=== PATIENT | female | born 1970 | race Caucasian/White ===

== ENCOUNTER 2016-08-22 10:43 | Emergency (ER) | payer OTHER ==
[~2016-08-22] VITALS: Ht 170.2 cm; Wt 77.1 kg
[2016-08-22 11:42] VITALS: BP 118/84
[2016-08-22 12:00] LABS: UA SPECIFIC GRAVITY >=1.030 (1.005-1.035); microscopic required? YES; urine erythrocyte 3+ (NEGATIVE)
== END 2016-08-22 11:47 | disposition home or self-care (01) ==
LOC: ED 10:43
PROVIDERS: Specialist
DX: N39.0 Urinary tract infection, site not specified (principal); F41.9 Anxiety disorder, unspecified; R53.83 Other fatigue

== ENCOUNTER 2016-11-27 20:11 | Emergency (ER) | payer OTHER ==
[2016-11-28 00:30] VITALS: BP 140/70
== END 2016-11-28 00:30 | disposition home or self-care (01) ==
LOC: ED 20:11
DX: R10.9 Unspecified abdominal pain (principal)
CPT/HCPCS: Q0092

== ENCOUNTER 2016-12-12 11:38 | Emergency (ER) | payer OTHER ==
[~2016-12-12] VITALS: Ht 170.2 cm; Wt 79.8 kg
[2016-12-12 13:19] LABS: BASOPHIL % 0.6 % (0-2); PLATELET COUNT 228 x10^3mcL (130-400)
[2016-12-12 13:35] LABS: UA SPECIFIC GRAVITY <=1.005 (1.005-1.035); microscopic required? YES; urine erythrocyte 1+ (NEGATIVE)
[2016-12-12 13:40] LABS: FREE T4 0.99 ng/dL (0.76-1.46); FREE THYROXINE INDEX 3.2 ug/dL (1.4-4.5); T4(THYROXINE) 10.5 ug/dL (4.7-13.3)
[2016-12-12 13:41] LABS: T3 TOTAL 1.29 ng/mL
[2016-12-12 14:20] LABS: CALCIUM 10.3 mg/dL (8.5-10.1); CARBON DIOXIDE 29.1 mmol/L (21-32); CHLORIDE SERUM 103 mmol/L (98-107); GFR1 > 60 mL/min; GLUCOSE SERUM 89 mg/dL (74-106); POTASSIUM SERUM 3.8 mmol/L (3.5-5.1); SODIUM SERUM 143 mmol/L (136-145)
[2016-12-12 14:25] LABS: ALBUMIN 4.2 g/dL (3.4-5.0); ALKALINE PHOSPHATASE 88 U/L (46-116); ALT/SGPT 22 U/L (14-59); AST/SGOT 9 U/L (15-37); BILIRUBIN TOTAL 0.4 mg/dL (0.20-1.00); LIPASE 136 IU/L (73-393); TOTAL PROTEIN, SERUM 8.2 g/dL (6.4-8.2); TRIGLYCERIDES 83 mg/dL (<150)
[2016-12-12 14:31] LABS: CHOLESTEROL 211 mg/dL (<200); CHOLESTEROL/HDL RATIO 3.4; HDL CHOLESTEROL 62 mg/dL (40-60)
[2016-12-12 15:19] VITALS: BP 113/91
== END 2016-12-12 15:19 | disposition home or self-care (01) ==
LOC: ED 11:38
PROVIDERS: Specialist
DX: R07.9 Chest pain, unspecified (principal); R53.1 Weakness; F41.9 Anxiety disorder, unspecified; F32.9 Major depressive disorder, single episode, unspecified
CPT/HCPCS: 83880; 84439; J1885; J7030; Q0092

== ENCOUNTER 2017-03-26 09:34 | Emergency (ER) | payer OTHER ==
[2017-03-26 10:21] LABS: microscopic required? YES; urine erythrocyte 2+ (NEGATIVE)
[2017-03-26 10:28] LABS: CALCIUM 8.8 mg/dL (8.5-10.1); CARBON DIOXIDE 29.2 mmol/L (21-32); CHLORIDE SERUM 104 mmol/L (98-107); CREATININE SERUM 0.8 mg/dL (0.6-1.0); GFR1 > 60 mL/min; GLUCOSE SERUM 102 mg/dL (74-106); POTASSIUM SERUM 3.8 mmol/L (3.5-5.1); SODIUM SERUM 138 mmol/L (136-145)
[2017-03-26 10:32] LABS: ALBUMIN 3.5 g/dL (3.4-5.0); ALKALINE PHOSPHATASE 87 U/L (46-116); ALT/SGPT 13 U/L (14-59); AMYLASE 64 U/L (25-115); AST/SGOT 6 U/L (15-37); BILIRUBIN TOTAL 0.5 mg/dL (0.20-1.00); LIPASE 121 IU/L (73-393); TOTAL PROTEIN, SERUM 7.3 g/dL (6.4-8.2)
[2017-03-26 10:36] LABS: BASOPHIL % 0.4 % (0-2); PLATELET COUNT 171 x10^3mcL (130-400); RED CELL DISTRIBUTION WIDTH 13.4 % (11.5-14.5)
[2017-03-26 13:24] VITALS: BP 118/79
== END 2017-03-26 13:24 | disposition home or self-care (01) ==
LOC: ED 09:34
PROVIDERS: Emergency Medicine
DX: N39.0 Urinary tract infection, site not specified (principal); K59.00 Constipation, unspecified; G89.4 Chronic pain syndrome; M77.02 Medial epicondylitis, left elbow
CPT/HCPCS: 36415; J1100; J1885

== ENCOUNTER 2017-05-16 11:24 | Emergency (ER) | payer OTHER ==
[~2017-05-16] VITALS: Ht 170.2 cm; Wt 79.8 kg
[2017-05-16 12:42] VITALS: BP 147/99; Ht 170.2 cm; Wt 79.8 kg
== END 2017-05-16 14:54 | disposition left against medical advice (07) ==
LOC: ED 11:24
DX: Z53.21 Procedure and treatment not carried out due to patient leaving prior to being seen by health care provider (principal)

== ENCOUNTER 2017-05-17 11:23 | Emergency (ER) | payer OTHER ==
[~2017-05-17] VITALS: Ht 170.2 cm; Wt 78.5 kg
[2017-05-17 11:42] VITALS: Ht 170.2 cm; Wt 78.5 kg
[2017-05-17 14:46] LABS: BASOPHIL % 0.4 % (0-2); PLATELET COUNT 140 x10^3mcL (130-400); RED CELL DISTRIBUTION WIDTH 13.9 % (11.5-14.5)
[2017-05-17 15:17] LABS: UA SPECIFIC GRAVITY >=1.030 (1.005-1.035); microscopic required? YES; urine erythrocyte 3+ (NEGATIVE)
[2017-05-17 15:47] LABS: CALCIUM 8.7 mg/dL (8.5-10.1); CARBON DIOXIDE 27.3 mmol/L (21-32); CHLORIDE SERUM 102 mmol/L (98-107); CREATININE SERUM 0.9 mg/dL (0.6-1.0); GFR1 > 60 mL/min; GLUCOSE SERUM 98 mg/dL (74-106); POTASSIUM SERUM 3.4 mmol/L (3.5-5.1); SODIUM SERUM 138 mmol/L (136-145)
[2017-05-17 16:22] VITALS: BP 124/90
== END 2017-05-17 16:22 | disposition home or self-care (01) ==
LOC: ED 11:23
PROVIDERS: Emergency Medicine
DX: J11.1 Influenza due to unidentified influenza virus with other respiratory manifestations (principal)
CPT/HCPCS: 36415; 87804; J1885

== ENCOUNTER 2018-02-06 09:50 | Emergency (ER) | payer OTHER ==
[~2018-02-06] VITALS: Ht 170.2 cm; Wt 83.0 kg
[2018-02-06 09:57] VITALS: Ht 170.2 cm; Wt 83.0 kg
[2018-02-06 12:27] VITALS: BP 110/70
== END 2018-02-06 12:27 | disposition home or self-care (01) ==
LOC: ED 09:50
DX: N39.0 Urinary tract infection, site not specified (principal); F41.9 Anxiety disorder, unspecified; F32.9 Major depressive disorder, single episode, unspecified; Z86.2 Personal history of diseases of the blood and blood-forming organs and certain disorders involving the immune mechanism
CPT/HCPCS: J0696

== ENCOUNTER 2018-03-05 07:58 | Emergency (ER) | payer OTHER ==
[~2018-03-05] VITALS: Ht 170.2 cm; Wt 82.3 kg
[2018-03-05 08:04] VITALS: Ht 170.2 cm; Wt 82.3 kg
[2018-03-05 09:20] LABS: UA SPECIFIC GRAVITY 1.015 (1.005-1.035); microscopic required? YES; urine erythrocyte 2+ (NEGATIVE)
[2018-03-05 09:31] VITALS: BP 119/79
== END 2018-03-05 10:48 | disposition home or self-care (01) ==
LOC: ED 07:58
PROVIDERS: Emergency Medicine
DX: G43.909 Migraine, unspecified, not intractable, without status migrainosus (principal); G89.29 Other chronic pain; M54.9 Dorsalgia, unspecified; F41.9 Anxiety disorder, unspecified; F32.9 Major depressive disorder, single episode, unspecified; G62.9 Polyneuropathy, unspecified; Z86.2 Personal history of diseases of the blood and blood-forming organs and certain disorders involving the immune mechanism; Z98.890 Other specified postprocedural states; Z98.82 Breast implant status
CPT/HCPCS: J2765

== ENCOUNTER 2018-03-26 08:41 | Emergency (ER) | payer OTHER ==
[~2018-03-26] VITALS: Ht 170.2 cm; Wt 83.5 kg
[2018-03-26 08:51] VITALS: BP 124/79; Ht 170.2 cm; Wt 83.5 kg
== END 2018-03-26 09:48 | disposition home or self-care (01) ==
LOC: ED 08:41
DX: N30.80 Other cystitis without hematuria (principal); F41.9 Anxiety disorder, unspecified; F32.9 Major depressive disorder, single episode, unspecified; Z86.2 Personal history of diseases of the blood and blood-forming organs and certain disorders involving the immune mechanism; Z98.890 Other specified postprocedural states; Z98.82 Breast implant status

== ENCOUNTER 2018-07-14 08:32 | Emergency (ER) | payer OTHER ==
[~2018-07-14] VITALS: Ht 170.2 cm; Wt 85.3 kg
[2018-07-14 08:38] VITALS: Ht 170.2 cm; Wt 85.3 kg
[2018-07-14 09:35] LABS: BASOPHIL % 0.6 % (0-2); PLATELET COUNT 193 x10^3mcL (130-400); RED CELL DISTRIBUTION WIDTH 13.9 % (11.5-14.5)
[2018-07-14 09:39] LABS: CARBON DIOXIDE 26.2 mmol/L (21-32); CHLORIDE SERUM 104 mmol/L (98-107); CREATININE SERUM 0.8 mg/dL (0.6-1.0); GFR1 > 60 mL/min; GLUCOSE SERUM 83 mg/dL (74-106); POTASSIUM SERUM 4.2 mmol/L (3.5-5.1); SODIUM SERUM 138 mmol/L (136-145)
[2018-07-14 09:43] LABS: ALBUMIN 3.5 g/dL (3.4-5.0); ALKALINE PHOSPHATASE 78 U/L (46-116); ALT/SGPT 17 U/L (14-59); AST/SGOT 8 U/L (15-37); BILIRUBIN TOTAL 0.4 mg/dL (0.20-1.00); TOTAL PROTEIN, SERUM 7.3 g/dL (6.4-8.2)
[2018-07-14 11:39] VITALS: BP 127/82
== END 2018-07-14 11:39 | disposition home or self-care (01) ==
LOC: ED 08:32
PROVIDERS: Emergency Medicine
DX: S16.1XXA Strain of muscle, fascia and tendon at neck level, initial encounter (principal); F41.9 Anxiety disorder, unspecified; F32.9 Major depressive disorder, single episode, unspecified; R07.89 Other chest pain; Z86.2 Personal history of diseases of the blood and blood-forming organs and certain disorders involving the immune mechanism; X58.XXXA Exposure to other specified factors, initial encounter; Y93.89 Activity, other specified; Y92.89 Other specified places as the place of occurrence of the external cause; Y99.8 Other external cause status
CPT/HCPCS: J1885; J7030; Q0092; Q9967

== ENCOUNTER 2019-05-15 13:36 | Emergency (ER) | payer OTHER | END 2019-05-15 15:39 | disposition left against medical advice (07) | LOC: ED 13:36 | DX: Z53.21 Procedure and treatment not carried out due to patient leaving prior to being seen by health care provider (principal) ==

== ENCOUNTER 2019-06-02 09:42 | Inpatient (IN) | payer OTHER ==
[~2019-06-02] VITALS: Ht 170.2 cm; Wt 82.2 kg
[2019-06-02 09:49] VITALS: Ht 170.2 cm; Wt 82.2 kg
--- NOTE | 2019-06-02 10:08 | NUR ---
PT HERE FOR C/O HAVING ABD PAIN AND FULL BODY PAIN THAT WORSENED THIS MORNING. SIG OTHER AT BEDSIDE. PT TEARFUL
--- NOTE | 2019-06-02 10:23 | NUR ---
MEDICATED ORDERED. WILL CONT TO MONITOR
[2019-06-02 10:52] LABS: ALBUMIN 4.1 g/dL (3.4-5.0); CHLORIDE SERUM 102 mmol/L (98-107); GFR1 > 60 mL/min; GLUCOSE SERUM 118 mg/dL (74-106); POTASSIUM SERUM 3.8 mmol/L (3.5-5.1); SODIUM SERUM 138 mmol/L (136-145); TOTAL PROTEIN, SERUM 8.2 g/dL (6.4-8.2)
[2019-06-02 10:53] LABS: ALKALINE PHOSPHATASE 103 U/L (46-116); ALT/SGPT 16 U/L (14-59); AST/SGOT 6 U/L (15-37); BILIRUBIN TOTAL 0.82 mg/dL (0.20-1.00); CALCIUM 9.2 mg/dL (8.5-10.1); LIPASE 93 IU/L (73-393)
[2019-06-02 11:17] LABS: AMPHETAMINE QUAL UR NEGATIVE (See below)
[2019-06-02 11:32] LABS: BASOPHIL % 0.1 % (0-2); PLATELET COUNT 190 x10^3mcL (130-400); RED CELL DISTRIBUTION WIDTH 13.8 % (11.5-14.5)
--- NOTE | 2019-06-02 12:33 | NUR ---
TEMP CHECKED. INFORMED DR BENDER OF SAME
--- NOTE | 2019-06-02 14:30 | NUR ---
PT AWAKE ALERT; BREATHING E/U. NAD NOTED
--- NOTE | 2019-06-02 15:10 | NUR ---
PT REQUESTING MED FOR AHUMADA. DR BENDER INFORMED OF SAME.
--- NOTE | 2019-06-02 16:14 | NUR ---
PT AMB TO RESTROOM. STS SHE WILL ATTEMPT TO PROVIDE STOOL SAMPLE
--- NOTE | 2019-06-02 16:20 | NUR ---
PT ATTEMPTED TO HAVE BM IN RESTROOM BUT WAS UNSUCCESSFUL. PT VOMITED UPON ARRIVING TO . TYLENOL HELD AT THIS TIME
--- NOTE | 2019-06-02 16:30 | NUR ---
VERBAL ORDER OK'D BY DR BENDER FOR ZOFRAN 4MG IVP FOR N/V. MED GIVEN.
[2019-06-02] MEDS ORDERED: LYRICA150 M1 (16:41)
[2019-06-02] MEDS ORDERED: CLONAZEPAM0.125 M1 (16:41)
--- NOTE | 2019-06-02 16:57 | NUR ---
TYLENOL GIVEN. PT DENIES NAUSEA. WILL CONT TO MONITOR TEMP
--- NOTE | 2019-06-02 17:29 | NUR ---
REPORT GIVEN TO GERA FONTANA
[2019-06-02 18:22] VITALS: BP 116/73
--- NOTE | 2019-06-02 18:35 | NUR ---
RECEIVED PT FROM ER, PT ADMIT FOR GASTROENTERITIS, DEHYDRATION. PT IS A/O X4, VERBAL RESPONSIVE. C/O HEADACHE 10/10, LUNG SOUND CLEAR BILATERAL, NO COUGH, NO SOB. PO2 95% IN ROOM AIR, PT IS ON TELE 2. STA, DENY ANY CHEST PAIN OR DISCOMFORT, BOWEL SOUND PRESENT ALL 4 QUADRANTS, NO DISTENTION, NO TENDER. C/O DIARRHEA YESTERDAY 4 TIMES, BUT STOP TODAY. PEDAL PULSE PRESENT BOTH FEET, NO EDEMA, IV AT RIGHT AC, NO LEAKING, NO INFILTRATION. ALL ADLS ASSIST, ALL NEED MET, CALL LIGHT IN REACH, WILL CONTINUE TO MONITOR.
--- NOTE | 2019-06-02 18:40 | NUR ---
PT RESTING IN BED COMFORTABLY, STABLE. FAMILY AT BEDSIDE.
--- NOTE | 2019-06-02 19:20 | NUR ---
PT IS SLEEPING THIS TIME, STABLE, GAVE REPORT TO [employer] NURSE.
--- NOTE | 2019-06-02 19:30 | NUR ---
Pt. received from day shift RN, currently resting in bed. Pt. is a/o x3,a ble to make needs known, able to follow commands, has c/o of h/a. Pt. states she was given tylenol downstairs before coming up, and nothing has helped with the pain. Educated pt. that if she wants something to help it calm down, to call using the call light button. Pt. states that she will rest for now to see if that will help with her h/a. Will continue to monitor pt. otherwise, pt. at this time has no c/o of chest pain, only discomfort is the h/a, no s/o SOB. Pt. safety in check w/ call light placed within reach, pt. educated on when and how to use call light system, bed set at lowest position, will continue to monitor pt.
[2019-06-02 21:57] VITALS: BP 101/68
--- NOTE | 2019-06-03 00:12 | NUR ---
Pt. states that the migraine has still continued throughout the night. Pt. states that she usually takes a medication that she injects herself when migraines get bad in between her monthly visits to her Neurologist. Pt. states that her will bring her nightly medication regiment because it is what helps her sleep at night. Pt. states that he will bring it in the morning. Pt. also states that she will tell her to bring her migraine medication in order to help her with the migraines. Offered pt. medication to help her sleep, pt. willing to take ambien. Also offered pt. what is ordered Wins[place] and Morphine to help with the pain, pt. refused at this time. Otherwise, pt. a/o x3, able to make needs known, able to follow commands, no c/o SOB or s/o distress. Pt. noted to be asleep through most of the shift, easily arousable using verbal stimuli. Will continue to monitor.
[2019-06-03 04:49] VITALS: BP 111/72
--- NOTE | 2019-06-03 05:39 | NUR ---
Pt. asleep throughout most of the night, easily arousable using verbal stimuli. Pt. did c/o uncontrolled migraine, but states that her medication usually helps her and that her will be called to send pictures of that medication so that it can added to her med rec. Pt. also states that she has her night meds that helps her go to sleep and that her will bring a list of her meds in the AM. Otherwise, pt. stable, no c/o of chest pain, n/v, s/o SOB or discomfort. Will continue to monitor pt. and endorse to next shift RN.
--- NOTE | 2019-06-03 07:15 | NUR ---
RECEIVED PT. IN BED A/A/O X3. NO SOB, NO N/V NOTED. PT. C/O HAVING ON AND OFF MIGRAINE HEADACHE. PT. STATED SHE DID NOT HAVE ANY DIARRHEA FOR MORE THAN 24 HOURS. D5NS RUNNING AT 100 CC/HR VIA IV SITE AT R AC. BED IN LOW POS., CALL LIGHT WITHIN REACH. SIDE RAILS UP X3.
[2019-06-03 08:20] VITALS: BP 118/83
[2019-06-03 13:01] VITALS: BP 134/95
--- NOTE | 2019-06-03 13:46 | NUR ---
PT. IS BEING SEEN BY DR. AVILA AT THIS TIME.
--- NOTE | 2019-06-03 15:39 | NUR ---
D/C HOME INSTRUCTIONS GIVEN TO PT. WITH VERBALIZATION OF UNDERSTANDING. IV H/L TO R AC REMOVED. PRESCRIPTION GIVEN. TELE. MONITOR #2 REMOVED AND RETURNED TO TELE. MONITOR STATION.
--- NOTE | 2019-06-03 15:55 | NUR ---
PT. IS BEING DISCHARGED IN STABLE CONDITION VIA WHEELCHAIR. ACCOMPANIED BY HER UPON DISCHARGE. ALL BELONGINGS SENT HOME WITH PT. AT THE TIME OF DISCHARGE.
== END 2019-06-03 15:56 | disposition home or self-care (01) | DRG 249 ==
LOC: ED 09:42 → DU 16:18
PROVIDERS: Emergency Medicine; ADMIT Internal Medicine
DX: K52.9 Noninfective gastroenteritis and colitis, unspecified (principal); D72.829 Elevated white blood cell count, unspecified; F41.9 Anxiety disorder, unspecified; E86.0 Dehydration; F32.9 Major depressive disorder, single episode, unspecified; G43.909 Migraine, unspecified, not intractable, without status migrainosus
CPT/HCPCS: 87046; 87046-59; 87804; G0378; J1885; J2405; J3010; J7030; J7042; Q0092

== ENCOUNTER 2019-06-04 09:50 | Emergency (ER) | payer OTHER ==
[~2019-06-04] VITALS: Ht 170.2 cm; Wt 81.2 kg
[~2019-06-04 09:50] MED LIST: CLONAZEPAM0.125 M1; LYRICA150 M1
[2019-06-04 10:01] VITALS: Ht 170.2 cm; Wt 81.2 kg
[2019-06-04 12:15] VITALS: BP 124/83
== END 2019-06-04 12:15 | disposition home or self-care (01) ==
LOC: ED 09:50
DX: R51 Headache (principal); Z98.890 Other specified postprocedural states; Z86.2 Personal history of diseases of the blood and blood-forming organs and certain disorders involving the immune mechanism
CPT/HCPCS: J1200; J1885; J2765; J7030